=== PATIENT | male | born 1995 | race Caucasian/White ===

== ENCOUNTER 2016-04-07 10:12 | Day surgery (SDC) | payer BC ==
[~2016-04-07] VITALS: Ht 175.3 cm; Wt 83.6 kg
[2016-04-07 10:46] VITALS: BP 124/78; PULSE 68; TEMP 97.1
[2016-04-07 12:50] VITALS: BP 116/71; PULSE 73; TEMP 97.1
[2016-04-07 13:05] VITALS: BP 123/64; PULSE 72
[2016-04-07 13:20] VITALS: BP 135/74; PULSE 74
[2016-04-07 13:35] VITALS: BP 129/60; PULSE 55
[2016-04-07 14:39] VITALS: BP 110/52; PULSE 53
== END 2016-04-07 14:00 | disposition home or self-care (01) ==
LOC: SDCO 10:12
DX: Z12.11 Encounter for screening for malignant neoplasm of colon (principal); K51.20 Ulcerative (chronic) proctitis without complications; R19.5 Other fecal abnormalities
CPT/HCPCS: J2250; J3010; J7030